=== PATIENT | female | born 1995 | race Two or more races ===

== ENCOUNTER 2023-12-01 07:05 | Emergency (ER) | payer SELFPAY ==
[2023-12-01 07:10] VITALS: BP 117/69; PULSE 82; RESP 16; TEMP 36.2; O2SAT 98; BMI 25.8
[2023-12-01 08:37] VITALS: BP 114/72; PULSE 87; RESP 16; TEMP 37.1; O2SAT 99
[2023-12-01 08:45] LABS: Influenza A PCR NEGATIVE (Negative); Influenza B PCR NEGATIVE (Negative); Resp Syncy Virus RNA Qual PCR NEGATIVE (Negative); SARS COV2 PCR INHOUSE NEGATIVE (Negative)
--- NOTE | 2023-12-01 09:28 | ED.GENADULT ---
HPI - General Adult General Chief complaint: Upper Respiratory Symptoms Stated complaint: itchy throat cough Time Seen by Provider: 12/01/23 09:02 Source: patient Mode of arrival: ambulatory Limitations: no limitations History of Present Illness HPI narrative: 28 year old with no significant past medical history presents to the ED today for evaluation of itchy throat, dry cough and congestion that began 2 days ago. She states that she was sick with similar symptoms approximately 1 week ago however they resolved until starting up again 2 days ago. Her boyfriend is ill at home with similar symptoms. She has not been taking any [id number] medications at home for symptoms. Denies fever, chills, dysphagia, odynophagia, sputum production, chest pain, shortness of breath, wheezing, dyspnea, hemoptysis, lower extremity pain/swelling, nausea or vomiting, abdominal pain. Denies recent travel or long car rides. Related Data Previous Rx's Medication Instructions Recorded benzonatate 100 mg capsule 100 mg PO BID PRN cough #20 caps 12/01/23 phenol 1.5 %-glycerin 33 % mucosal 1 spray mucous membrane Q4-6H PRN 12/01/23 spray (Chloraseptic Max Sore sore throat #118 mL Throat) prednisone 20 mg tablet 40 mg (2 x 20 mg) PO DAILY 5 days 12/01/23 #10 tabs Allergies Allergy/AdvReac Type Severity Reaction Status Date / Time No Known Allergies Allergy Verified 12/01/23 07:10 Review of Systems Review of Systems: Constitutional: No fever, chills, fatigue, night sweats, weight changes ENT/Mouth: No ear pain, hearing loss, sinus pain, rhinorrhea, +sore throat, +nasal congestion Eyes: No eye pain, swelling, redness, vision changes, discharge Cardio: No chest pain, palpitations, PAUL, orthopnea, peripheral edema Pulm: No SOB, cough, sputum, wheezing, dyspnea, hemoptysis GI: No nausea, vomiting, hematemesis, abdominal pain, diarrhea, constipation, hematochezia, melena : No irregular bleeding, dysuria, frequency, urgency, hesitancy, hematuria, flank pain, urinary flow changes, urinary incontinence or retention MSK: No back pain, neck pain, joint pain, myalgias Skin: No lesions, rashes Neuro: No weakness, numbness, paresthesias, LOC, dizziness, headache Psych: No anxiety/panic, depression, SI/HI, AH/VH All other systems reviewed and are negative. [facility] Past Medical History Attestation statement: The following information was validated with the patient. Source: old records reviewed and nursing notes reviewed Social History Social History Advance Directives: No Advance Directives Information Provided: Yes Advance Directives on File: No Physical Exam ED Vital Signs: Vital Signs - 24 hr 12/01/23 07:10 12/01/23 08:37 Temperature 97.1 F 98.8 F Pulse Rate 82 87 Respiratory Rate 16 16 Blood Pressure 117/69 114/72 Pulse Oximetry 98 99 Oxygen Delivery Method Room Air Room Air BMI result Body Mass Index 25.8 Vital signs stable, afebrile. Const General: cooperative, healthy appearing, comfortable, no acute distress, alert and awake Orientation/consciousness: patient oriented x3 Limitations: no limitations HENMT Other: + posterior oropharynx erythematous, no edema, uvula is midline, no tonsilar exudates or peritonsillar masses, controlling secretions and speaking in complete sentences. Head: Yes normal to inspection, Yes normocephalic and Yes atraumatic Ears: hearing grossly normal bilaterally, external ears normal, TM's normal bilaterally, EAC's normal, mastoids normal and no periauricular adenopathy General nose exam: Normal external nose present and No nasal discharge present Face and sinus: Yes normal facial exam and Yes sinuses nontender Eyes General: appearance normal, both eyes and all related structures Conjunctivae: conjunctivae normal Sclerae: sclerae normal Pupils: Equal, round and reactive pupils present Neck Other: + no cervical, submandibular or submental LAD. Neck: Yes normal visual inspection and Yes full ROM Resp Effort & Inspection: normal respiratory effort and able to speak in complete sentences Auscultation: clear to auscultation bilaterally, no crackles, no rhonchi and no wheezes Cardio Rate: regular rate Rhythm: regular rhythm GI Inspection: Yes normal to inspection Palpation (GI): Soft to palpation and nontender Skin General skin exam: no rashes or lesions noted Neuro General: patient oriented x3, gait normal and moves all extremities Cranial nerves: Yes Equal, round and reactive pupils present Extrem General: Yes normal to inspection Course Course Course Narrative: 0939-- Patient has tested negative for COVID, flu, RSV, strep pharyngitis. Likely has viral upper respiratory infection. Discussed all results with patient. Will send Tessalon Perles, prednisone and Chloraseptic throat spray to pharmacy. Patient has remained stable throughout ED visit today. Discussed worrisome signs and symptoms and when to return to the ED. All questions answered at this time. Patient is agreeable with disposition and stable for discharge. Medical Decision Making Medical Decision Making [facility] Narrative: 28 year old with no significant past medical history presents to the ED today for evaluation of itchy throat, dry cough and congestion that began 2 days ago. Vital signs stable, afebrile. She is nontoxic-appearing and in no acute distress. Actively coughing on exam. Lungs are clear to auscultation bilaterally. No wheezes crackles or rhonchi. Posterior oropharynx is erythematous. No edema. No peritonsillar edema or masses. No tonsillar exudates. Uvula midline. Controlling secretions and speaking in complete sentences. Airway patent. Bilateral EACs and TMs WNL. No tenderness over maxillary or frontal sinuses. Differential diagnosis includes viral syndrome, strep throat. 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 Plan for viral serology and strep swabs. Differential Diagnosis Differential Diagnoses: The differential diagnosis associated with the presentation includes as above. Admission/Observation Not indicated Lab Data [facility] Lab Attestation statement: I reviewed the patient's lab results. as above Labs: Lab Results 12/01/23 12/01/23 Range/Units 07:44 09:21 Influenza Type A (PCR) NEGATIVE (Negative) Influenza Type B (PCR) NEGATIVE (Negative) RSV RNA Qual (PCR) NEGATIVE (Negative) SARS-CoV-2 RNA (RT-PCR) NEGATIVE (Negative) S. pyogenes GrpA JASMEET Negative (Negative) External Record Review External record reviewed: Inpatient record Prescription Management I considered prescription management with: Other (Tessalon Perles, prednisone, Chloraseptic spray) Social Determinants Patient?s care significantly limited by Social Determinants of Health including: Other Social Determinant of Health Critical Care Time Critical Care Time Critical Care Time: No Discharge Plan Discharge Clinical Impression: Viral upper respiratory infection Patient Disposition: Home, Self-Care Instructions: Upper Respiratory Infection (ED), Viral Syndrome (ED) Additional Instructions: You were seen in the ED today for evaluation of upper respiratory symptoms. You tested negative for COVID, flu, RSV, strep throat. You likely have a viral upper respiratory infection that does not require antibiotics. Prednisone as a steroid that has been sent to your pharmacy. Take this over the next 5 days. Tessalon Perles have been sent to your pharmacy. Take these as needed for cough. Chloraseptic spray has been sent to your pharmacy. Use this as needed for sore throat. Take Tylenol and ibuprofen as needed for body aches or fevers. Follow up with your primary care provider as needed. Return to the emergency department if your symptoms persist or worsen despite treatment or if you have difficulty swallowing, opening your mouth, or develop a rash. In the case of emergency, call 911.? Prescriptions: New benzonatate 100 mg capsule 100 mg PO BID PRN (Reason: cough) Qty: 20 0RF prednisone 20 mg tablet 40 mg PO DAILY 5 Days Qty: 10 0RF Chloraseptic Max Sore Throat 1.5-33 % spray,non-aerosol 1 spray mucous membrane Q4-6H PRN (Reason: sore throat) Qty: 118 0RF Rx Instructions: leave on area for 15 seconds then spit out Referrals: Physician,None [Primary Care Provider] - Stand Alone Forms: Work/School Release
[2023-12-01 09:35] LABS: IDNOW Serial# 08D9AD1C; Strep A Nucleic Acid Negative (Negative)
[2023-12-01 10:03] VITALS: BP 114/72; PULSE 87; RESP 16; TEMP 37.1; O2SAT 99
== END 2023-12-01 10:04 | disposition home or self-care (01) ==
PROVIDERS: Physician Assistant Medical; Emergency Provider Student in an Organized Health Care Education/Training Program
DX: J06.9 Acute upper respiratory infection, unspecified (principal); R05.9 Cough, unspecified; R09.81 Nasal congestion; J02.9 Acute pharyngitis, unspecified
CPT/HCPCS: 0241U; 87651; 99283

== ENCOUNTER 2024-05-17 17:58 | Emergency (ER) | payer OTHER, SELFPAY ==
--- NOTE | ~2024-05-17 | US_ITS ---
EXAMINATION: US OBSTETRICAL ULTRASOUND CLINICAL INFORMATION: 13 weeks . Abdominal cramping. COMPARISON: None available. LMP: 02/18/2024. Gestational age by maternal dates is 12 weeks, 5 days. Estimated date of delivery by maternal dates is 11/24/2024. TECHNIQUE: Transabdominal ultrasound was performed. FINDINGS: There is a single intrauterine gestational sac with visible yolk sac, embryo/fetus, and cardiac activity. There is no significant subchorionic hemorrhage or hematoma. HR: 149 beats per minute. CRL (crown rump length): 6.87 cm (13 weeks 1 day +/- 4 days). JOSE (estimated date of delivery): 11/21/2024 +/- 4 days. MATERNAL ADNEXA: The right maternal ovary measures 3.3 x 1.6 x 1.2 cm. The left maternal ovary measures 3.0 x 1.8 x 1.6 cm. There is no significant maternal adnexal mass. No maternal pelvic ascites. US/US OB <= 14 weeks fetus IMPRESSION: 1. Single intrauterine gestation with ultrasound gestational age of 13 weeks 1 day +/- 4 days. 2. Estimated date of delivery is 11/21/2024 +/- 4 days. 3. No maternal adnexal mass or pelvic ascites. Electronically signed by: Buzz Huang DO 05/17/2024 08:37 PM EDT
[2024-05-17 18:05] VITALS: BP 119/72; PULSE 77; RESP 20; TEMP 36.1; O2SAT 100; BMI 25.3
--- NOTE | 2024-05-17 18:06 | ED.PREGNANCY ---
HPI - General Chief complaint: Dizziness Stated complaint: , cramping Time Seen by Provider: 05/17/24 20:06 Source: patient Mode of arrival: ambulatory Limitations: no limitations History of Present Illness HPI Narrative: Patient is a 28-year-old female approximately 12 weeks with last menstrual period 02/18/2024 an JOSE 11/25/2023 following with OB for Tiffani presenting for diffuse lower abdominal cramping without vaginal bleeding abnormal vaginal discharge, associated nausea and lightheadedness without syncope. She has been experiencing nausea throughout this 1st trimester of . She took Zofran 4 mg at approximately 13:00 with only some relief. While at work she began to feel lightheaded and unwell and decided to seek evaluation. She denies any known sick contacts. Denies associated urinary symptoms. Related Data Previous Rx's ?Medication ?Instructions ?Recorded benzonatate 100 mg capsule 100 mg PO BID PRN cough #20 caps 12/01/23 phenol 1.5 %-glycerin 33 % mucosal 1 spray mucous membrane Q4-6H PRN 12/01/23 spray (Chloraseptic Max Sore sore throat #118 mL Throat) prednisone 20 mg tablet 40 mg (2 x 20 mg) PO DAILY 5 days 12/01/23 #10 tabs Allergies Allergy/AdvReac Type Severity Reaction Status Date / Time No Known Allergies Allergy Verified 05/17/24 18:07 Review of Systems Review of Systems: Yes all other systems are reviewed and are negative [facility] Past Medical History Attestation statement: The following information was validated with the patient. Source: old records reviewed Social History Social History Advance Directives: No Advance Directives Information Provided: No Do you have a plan to hurt others: No Plan Physical Exam Vital Signs: Vital Signs: Last Vital Signs Temp 0 F L 05/17/24 21:09 Pulse 93 05/17/24 21:09 Resp 16 05/17/24 21:09 BP 120/78 05/17/24 21:09 Pulse Ox 100 05/17/24 18:05 O2 Del Method Room Air 05/17/24 18:05 BMI result Body Mass Index 25.3 Appearance: Alert.?Oriented to person, place and time. No acute distress.?Normal affect. Eyes: Pupils equal, round and reactive to light.? ENT: Pharynx normal.?? Neck: Normal inspection.? Neck supple.?? CVS: Heart sounds normal. Normal heart rate and rhythm.? Pulses normal.?? Respiratory: No respiratory distress.? Lung sounds clear to auscultation bilaterally?? Abdomen: Soft and non-tender. Normoactive bowel sounds. No pulsatile mass.??No CVAT Skin: Skin warm and dry.? Normal skin color.? Normal skin turgor.?? Extremities: No lower extremity edema.? No calf ttp? Neuro: Moves all extremities spontaneously. Sensation intact bilaterally. CN II-XII intact. No focal neuro deficits. Ambulates with normal steady gait. Course Course Course Narrative: This is a Rapid Medical Examination (RME) performed by Nereida Browning PA-C in triage. Full HPI, ROS, assessment and treatment plan per primary provider in the Main ED. 28 yo female A1 currently 13 wks here for eval of nausea, light headedness, and lower abdominal cramping x24 hours. denies vaginal bleeding. reports confirmed via blood work. has not yet had ultrasound confirmation by OB. + well appearing Plan: labs, UA, ultrasound Medications Administered Discontinued Medications Generic Name Dose Route Start Last Admin Trade Name Freq PRN Reason Stop Dose Admin Ondansetron HCl 4 mg 05/17/24 20:19 05/17/24 20:30 Ondansetron Odt 4 Mg Tab.Rapdis TRANSLINGU 05/17/24 20:20 4 mg ONCE ONE Administration Medical Decision Making Medical Decision Making MDM Narrative: Patient is a 28-year-old female approximately 12 weeks presenting for evaluation of diffuse lower abdominal cramping without any injury, abnormal vaginal discharge or bleeding. Denies symptoms. No associated gastrointestinal symptoms. Abdominal examination is benign, unlikely acute surgical abdomen. Urinalysis without evidence of infection or microscopic hematuria.. ultrasound reveals a single live IUP without acute abnormality. She was offered IV fluids and IV Zofran as she does admit that she has been unable to taken much fluids. 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 She states that she has a close follow-up with her OB, and she will return should her symptoms worsen. We discussed consuming small frequent amounts of liquids, she may also mixed this with an electrolyte drink half and half to help keep her hydrated. Small frequent meals were recommended. Differential Diagnosis Differential Diagnoses: The differential diagnosis associated with the presentation includes (Gastritis, viral syndrome, UTI, ectopic . Unlikely TOA/ovarian abscess denies concern for STI, no associated pelvic symptoms or vaginal discharge. No systemic toxicity.) Admission/Observation Consideration of admission/observation: Escalation of care including admission/observation considered (See narrative above) Lab Data MDM Lab Attestation statement: I reviewed the patient's lab results. CBC revealing a mild leukocytosis of 11.9 may be secondary to vomiting or viral illness, no anemia, no thrombocytopenia. No electrolyte derangement. No HODAN. LFTs within normal range. HCG detectable. Urinalysis without infection. 05/17/24 18:34 05/17/24 18:34 Labs: Lab Results 05/17/24 Range/Units 18:34 WBC 11.9 H (4.8-10.8) X10*3/uL RBC 4.19 L (4.20-5.50) X10*6/uL Hgb 13.0 (12.0-16.0) g/dl Hct 38.0 (37.0-47.0) % MCV 90.7 (80.0-98.0) fL MCH 31.0 (27.0-33.0) pg MCHC 34.2 (31.0-35.0) g/dl RDW 12.5 (11.0-16.0) % Plt Count 231 (160-400) X10*3/uL MPV 9.3 L (9.4-12.3) fL Immature Gran % (Auto) 1.2 H (0.0-0.4) % Neut % (Auto) 76.9 H (45-73) % Lymph % (Auto) 16.2 L (20-40) % Treasure % (Auto) 5.0 (2-11) % Eos % (Auto) 0.4 (0-4) % Baso % (Auto) 0.3 (0-2) % Lymph # (Auto) 1.9 (1.2-4.9) X10*3/uL [place] # (Auto) 0.6 (0.1-1.2) X10*3/uL Eos # (Auto) 0.1 (0.0-0.4) X10*3/uL Baso # (Auto) 0.0 (0.0-0.2) X10*3/uL Abs Immat Gran (auto) 0.14 H (0.00-0.03) X10*3/uL Absolute Neuts (auto) 9.2 H (2.0-8.3) x10*3/uL Absolute Nucleated RBC 0.000 (0.0-0.012) X10*3/uL Nucleated RBC % (auto) 0.0 (0.0-0.2) /100WBC Sodium 136 (135-145) mmol/L Potassium 3.7 (3.3-5.1) mmol/L Chloride 105 (96-108) mmol/L Carbon Dioxide 20 L (22-29) mmol/L Anion Gap 15 (12-20) BUN 11 (9-16) mg/dL Creatinine 0.61 (0.5-1.4) mg/dL Estim Creat Clear Calc 126.6 Estimated GFR > 60 Random Glucose 79 (60-115) mg/dL Calcium 9.4 (8.4-10.2) mg/dL Magnesium 1.8 (1.6-2.6) mg/dL Total Bilirubin 0.4 (0.0-1.0) mg/dL AST 22 (5-31) U/L ALT 25 (0-31) U/L Alkaline Phosphatase 56 (39-117) U/L Total Protein 7.4 (6.5-8.0) g/dL Albumin 3.9 (3.5-5.0) g/dL Beta HCG, Quant 24760 mIU/mL Urine Color Yellow Urine Appearance Clear Urine pH 5.5 (5.0-9.0) Ur Specific [place] 1.025 (1.005-1.025) Urine Protein Negative (Neg-Trace) mg/dL Urine Glucose (UA) Negative (Negative) mg/dL Urine Ketones 15 (Negative) mg/dL Urine Blood Negative (Negative) Urine Nitrite Negative (Negative) Ur Leukocyte Esterase Negative (Negative) Independent Interpretation I performed an independent interpretation of an: Ultrasound (Single IUP) Radiology Impression Discussion of test interpretation with radiology: I have reviewed the radiologist's reading. Radiologist Impression: US/US OB <= 14 weeks fetus IMPRESSION: 1. Single intrauterine gestation with ultrasound gestational age of 13 weeks 1 day +/- 4 days. 2. Estimated date of delivery is 11/21/2024 +/- 4 days. 3. No maternal adnexal mass or pelvic ascites. External Record Review External record reviewed: Outpatient record Prescription Management I considered prescription management with: Other (Antiemetic) Discharge Plan Discharge Clinical Impression: Nausea and vomiting in Patient Disposition: Home, Self-Care Instructions: Nausea and Vomiting in (ED) Additional Instructions: Be sure that you are staying well hydrated drinking plenty of fluids. Use the Zofran you have been prescribed previously for nausea and vomiting. Small frequent meals may be helpful as well. ultrasound today is reassuring no acute abnormality. Blood work is very reassuring. Urine is without evidence of infection. Follow-up closely with your OB. Return with any new or worsening symptoms or concerns Prescriptions: No Action benzonatate 100 mg capsule 100 mg PO BID PRN (Reason: cough) Qty: 20 0RF prednisone 20 mg tablet 40 mg PO DAILY 5 Days Qty: 10 0RF Chloraseptic Max Sore Throat 1.5-33 % spray,non-aerosol 1 spray mucous membrane Q4-6H PRN (Reason: sore throat) Qty: 118 0RF Rx Instructions: leave on area for 15 seconds then spit out Referrals: Physician,None [Primary Care Provider] - Interventions: ED Discharge Assessment Last Done: 05/17/24 21:09 Discharge Date/Time: 05/17/24 21:10 Print Language: Citizen Of [place]
[2024-05-17 18:43] LABS: MANUAL DIFF FLAG NO
[2024-05-17 18:46] LABS: Basophils Percent Auto 0.3 % (0-2); Eosinophils Absolute Auto 0.1 X10*3/uL (0.0-0.4); Eosinophils Percent Auto 0.4 % (0-4); Imm Gran Abs Auto 0.14 X10*3/uL (0.00-0.03); Imm Gran Pct Auto 1.2 % (0.0-0.4); Lymphocytes Absolute Auto 1.9 X10*3/uL (1.2-4.9); Lymphocytes Percent Auto 16.2 % (20-40); Mean Corpuscular HGB Conc 34.2 g/dl (31.0-35.0); Mean Corpuscular Volume 90.7 fL (80.0-98.0); Mean Platelet Volume 9.3 fL (9.4-12.3); Monocytes Absolute Auto 0.6 X10*3/uL (0.1-1.2); Neutrophils Absolute Auto 9.2 x10*3/uL (2.0-8.3); Neutrophils Percent Auto 76.9 % (45-73); Platelet Count 231 X10*3/uL (160-400); Red Blood Count 4.19 X10*6/uL (4.20-5.50); Red Cell Distribution Width 12.5 % (11.0-16.0); White Blood Count 11.9 X10*3/uL (4.8-10.8)
[2024-05-17 18:47] LABS: Appearance Urine Clear; Color Urine Yellow; Glucose Urine UA Negative (Negative); Leukocyte Esterase Urine Negative (Negative); Nitrite Urine Negative (Negative); PH 5.5 (5.0-9.0); Specific Gravity - Urine 1.025 (1.005-1.025); Urine Blood Negative (Negative); Urine Ketones 15 mg/dL (Negative); Urine Protein Negative (Neg-Trace)
[2024-05-17 19:07] LABS: Alanine Aminotransferase 25 U/L (0-31); Albumin Level 3.9 g/dL (3.5-5.0); Alkaline Phosphatase 56 U/L (39-117); Anion Gap 15 (12-20); Aspartate Amino Transferase 22 U/L (5-31); Bilirubin Total 0.4 mg/dL (0.0-1.0); Blood Urea Nitrogen 11 mg/dL (9-16); Calcium 9.4 mg/dL (8.4-10.2); Carbon Dioxide 20 mmol/L (22-29); Chloride 105 mmol/L (96-108); Creatinine Clr Calc Pharmacy 126.6; Estimated Glomerular Filt Rate > 60; Glucose Random 79 mg/dL (60-115); Magnesium 1.8 mg/dL (1.6-2.6); Potassium 3.7 mmol/L (3.3-5.1); Sodium 136 mmol/L (135-145); Total Protein 7.4 g/dL (6.5-8.0)
--- OUTSIDE RECORDS SUMMARY | 2024-05-17 19:28 | XMS_ITS | Continuity of Care Document ---
Author Organization [facility] ter Address [address] [place] [id number]- Care Team Providers Care Drum Printer Name Role Phone Not on Staff, PCP Primary Care Physician Unavail able [place] [facility] [place]): [place] - 05/07/[address] [id number]- Encounter Diagnosis Boxers fracture(Final) - 05/07/22 Hand abrasion(Final) - 05/07/22 Discharge Disposition: A-D/C Home Attending Physician: Akbar Trinidad MD Admitting Physician: Akbar Trinidad MD Referring Physician: Not on Staff, Referring MD Allergies, Adverse Reactions, Alerts No Known Allergies Problem List Condition Effective Dates Status Health Status Inform ant Normal (Confirmed) Active Results Radiology Reports * Exam Date Time Procedure Performing Provider Status 05/06/22 10:13 PM Hand Min 3 Views Right Huy Brown son; Auth (Verified) Notes: (Hand Min 3 Views Right) Reason For Exam: with Pain;Trauma RESULT: Hand Min 3 Views Right Hand Min 3 Views Right, 3 views INDICATION: R hand pain; Reason: Trauma; with Pain; Clinical Question(s): Fracture COMPARISON: None. FINDINGS: Slightly comminuted, mildly angulated, nondisplaced fracture of the right fifth distal metacarpal metaphysis. No arthritic changes. Tissue swelling along the ulnar aspect of the hand. IMPRESSION: Slightly comminuted, mildly angulated, nondisplaced fracture of the right fifth distal metacarpal metaphysis (boxer's fracture). A critical result message ([place]) has been communicated via the [facility] system on 05/06/2022 10:29 PM, Message ID [id number]. I have personally reviewed the images and I agree with this report. WSN: [id number] Ordering Physician: Marbella Hooks Dictated By: Yessenia Mckenzie DO Dictated Date/Time: 05/06/22 10:31 p Reviewed By: Asaf Pearson MD Signed By: Asaf Pearson MD Signed Date/Time: 05/06/22 10:36 pm Transcribed By: SHARAD Transcribed Date/Time: 05/06/22 10:29 pm Vital Signs Most recent to oldest [Reference Range]: 1 2 3 Height 160 cm (05/06/22 7:49 PM) 160 cm (05/06/22 7:41 PM) Weight 70 kg (05/06/22 7:49 PM) 70 kg (05/06/22 7:41 PM) Oxygen Saturation [94-100 %] 99 % (05/07/22 2:52 AM) 100 % (05/07/22 12:26 AM) 100 % (05/06/22 11:29 PM) Pulse Rate [55-90 bpm] 63 bpm (05/07/22 2:52 AM) 55 bpm (05/07/22 12:26 AM) 59 bpm (05/06/22 11:29 PM) Body Mass Index [18.5-24.99] 27.34 *H* (05/06/22 7:41 PM) Blood Pressure [90-138/55-84 mm Hg] 127/64mm Hg (05/07/22 2:52 AM) 113/77mm Hg (05/07/22 12:26 AM) 132/68mm Hg (05/06/22 11:29 PM) Respiratory Rate [16-30 br/min] 15 br/min *L* (05/07/22 2:52 AM) 16 br/min (05/06/22 11:29 PM) 16 br/min (05/06/22 7:41 PM) Temperature [96.8-100.4 DegF] 97.9 DegF (05/07/22 2:52 AM) 98.0 DegF (05/07/22 12:26 AM) 98.2 DegF (05/06/22 11:29 PM) Mode of Delivery (Oxygen) Room air (05/07/22 2:52 AM) Room air (05/06/22 11:29 PM) Room air (05/06/22 7:41 PM) Blood pressure sites Arm, left (05/07/22 2:52 AM) Arm, left (05/07/22 12:26 AM) Arm, right (05/06/22 11:29 PM) Temperature Route Oral (05/07/22 2:52 AM) Oral (05/07/22 12:26 AM) Oral (05/06/22 11:29 PM) Dry Weight 70 kg (05/06/22 7:49 PM) 70 kg (05/06/22 7:41 PM) Weight Obtained Via Standing scale (05/06/22 7:41 PM) Dry Weight Obtained Via Standing scale (05/06/22 7:41 PM) Note * [facility] , CIS S: TRANSCRIBE Asaf Pearson MD: VERIFY Yessenia Mckenzie DO P: SIGN Event Display: Result: Authored Date: Hand Min 3 Views Right, 3 views INDICATION: R hand pain; Reason: Trauma; with Pain; Clinical Question(s): Fracture COMPARISON: None. FINDINGS: Slightly comminuted, mildly angulated, nondisplaced fracture of the right fifth distal metacarpal metaphysis. No arthritic changes. Tissue swelling along the ulnar aspect of the hand. IMPRESSION: Slightly comminuted, mildly angulated, nondisplaced fracture of the right fifth distal metacarpal metaphysis (boxer's fracture). A critical result message ([place]) has been communicated via the [facility] system on 05/06/2022 10:29 PM, Message ID [id number]. I have personally reviewed the images and I agree with this report. WSN: [id number] Ordering Physician: Marbella Hooks Dictated By: Yessenia Mckenzie DO Dictated Date/Time: 05/06/22 10:31 p Reviewed By: Asaf Pearson MD Signed By: Asaf Pearson MD Signed Date/Time: 05/06/22 10:36 pm Transcribed By: SHARAD Transcribed Date/Time: 05/06/22 10:29 pm Care Team Personnel Name: Not on Staff, PCP
--- OUTSIDE RECORDS SUMMARY | 2024-05-17 19:28 | XMS_ITS | Continuity of Care Document ---
Author Organization [facility] ter Address [address] [place] [id number]- Care Team Providers Care Heading And Priming Operator Name Role Phone Yokasta GERMAN, Bindu Segura Primary Care Ph ysician [place] [facility] [place] - 04/15/[address] [address]- Discharge Disposition: A-D/C Walkout Attending Physician: Not on Staff, Attending MD Admitting Physician: Not on Staff, Admitting MD Referring Physician: Not on Staff, Referring MD Allergies, Adverse Reactions, Alerts No Known Allergies Medications ondansetron 4 mg oral tablet See Instructions, TAKE 1 TABLET BY MOUTH EVERY 8 HOURS NEEDED FOR NAUSEA AND VOMITING, # 10 tablet, 1 Refills, Maintenance, 05/15/23 13:34:00 EDT, [id number], 160, cm, 04/29/23 14:26:00 EDT, Height, 73.9, kg, 04/29/23 14:26:00 EDT, Dry Weight Start Date: 05/15/23 Status: Ordered pyridoxine 25 mg oral tablet 1 tablet = 25 mg, By Mouth, 3 times a day, PRN Nausea & Vomiting, # 100 tablet, 1 Refills, Maintenance, 04/29/23 18:22:00 EDT, Tablet, [id number], Partial fill upon patient request if theprescription is for a schedule II opioid drug., 160, cm... Start Date: 04/29/23 Status: Ordered Unisom 25 mg oral tablet 1 tablet = 25 mg, By Mouth, Daily at bedtime, PRN for sleep, # 30 tablet, 1 Refills, Maintenance, 04/29/23 18:22:00 EDT, Tablet, [id number], Partial fill upon patient request if the prescription is for a schedule II opioid drug., 160, cm, 2... Start Date: 04/29/23 Status: Ordered Problem List Condition Confirmation Course Effective Dates Status Health St atus Informant Normal Confirmed Active Vital Signs Most recent to oldest [Reference Range]: 1 2 Height 160 cm (04/15/24 6:11 PM) Weight 63.6 kg (04/15/24 6:11 PM) Oxygen Saturation [94-100 %] 100 % (04/15/24 6:11 PM) 97 % (04/15/24 6:05 PM) Pulse Rate [55-90 bpm] 67 bpm (04/15/24 6:11 PM) 97 bpm *H* (04/15/24 6:05 PM) Body Mass Index [18.5-24.99 kg/m2] 24.84 kg/m2 (04/15/24 6:11 PM) Blood Pressure [90-138/55-84 mm Hg] 109/ 62mm Hg (04/15/24 6:11 PM) Respiratory Rate [16-30 br/min] 18 br/mi n (04/15/24 6:11 PM) 18 br/min (04/15/24 6:05 PM) Temperature [96.8-100.4 DegF] 98.5 DegF (04/15/24 6:11 PM) Mode of Delivery (Oxygen) Room air (04/15/24 6:11 PM) Room air (04/15/24 6:05 PM) Blood pressure sites Arm, left (04/15/24 6:11 PM) Temperature Route Oral (04/15/24 6:11 PM) Dry Weight 63.6 kg (04/15/24 6:11 PM) Weight Obtained Via Patient/family state d (04/15/24 6:11 PM) Dry Weight Obtained Via Patient/family s tated (04/15/24 6:11 PM) Patient Care team information Care Team Personnel Name: Bindu Templeton MD Position: S Physician - Pediatrics Member Role: PCP Address: Address: [address] [place] [address], [address] [facility] [place] [address]- Care Team Related Persons Name: JAKY ESCALANTE Name: SRIRAM ESCALANTE Address: home [address] [place] [id number]
--- OUTSIDE RECORDS SUMMARY | 2024-05-17 19:28 | XMS_ITS | Continuity of Care Document ---
Author Organization [facility] ter Address [address] [place] [id number]- Care Team Providers Care Buildings And Grounds Superintendent Name Role Phone Not on Staff, PCP Primary Care Physician Unavail able Encounter [facility] [place] Date(s): 04/29/23 - 04/29/[address] [address]- Discharge Disposition: Transferred to an intermediate care faci Attending Physician: Elvis Healy MD Admitting Physician: Elvis Healy MD Referring Physician: Not on Staff, Referring MD Allergies, Adverse Reactions, Alerts No Known Allergies Medications ondansetron 4 mg oral tablet 1 tablet = 4 mg, By Mouth, Every 8 hours, PRN Nausea & Vomiting, # 10 tablet, 0 Refills, Maintenance, 04/29/23 18:22:00 EDT, Tablet, [id number], Partial fill upon patient request if the prescription is for a schedule II opioid drug., 160, cm,... Start Date: 04/29/23 Status: Ordered pyridoxine 25 mg oral tablet [...] opioid drug., 160, cm, 2... Start Date: 8/26/23 Status: Ordered Problem List Condition Confirmation Course Effective Dates Status Health St atus Informant Normal Confirmed Active Vital Signs Most recent to oldest [Reference Range]: 1 Height 160 cm (04/29/23 1:57 PM) Oxygen Saturation [94-100 %] 100 % (04/29/23 1:57 PM) Pulse Rate [55-90 bpm] 86 bpm (04/29/23 1:57 PM) Blood Pressure [90-138/55-84 mm Hg] 125/ 82mm Hg (04/29/23 1:57 PM) Respiratory Rate [16-30 br/min] 18 br/mi n (04/29/23 1:57 PM) Temperature [96.8-100.4 DegF] 98.8 DegF (04/29/23 1:57 PM) Mode of Delivery (Oxygen) Room air (04/29/23 1:57 PM) Blood pressure sites Arm, left (04/29/23 1:57 PM) Temperature Route Oral (04/29/23 1:57 PM) Dry Weight 75 kg (04/29/23 1:57 PM) Dry Weight Obtained Via Patient/family s tated (04/29/23 1:57 PM) Patient Care team information Care Team Personnel Name: Not on Staff, PCP Position: S Physician (General Medicine) Member Role: PCP Care Team Related Persons Name: JAKY ESCALANTE Name: SRIRAM ESCALANTE Address: home [address] [place] [id number]
[2024-05-17 19:33] LABS: HCG Quantitative 69358 mIU/mL
[2024-05-17 20:13] VITALS: BP 105/75; PULSE 100
[2024-05-17 20:16] VITALS: BP 120/78; PULSE 93
[2024-05-17] MEDS: Ondansetron ODT 4 MG TAB.RAPDIS TRANSLINGU (20:30)
[2024-05-17 21:09] VITALS: BP 120/78; PULSE 93; RESP 16; TEMP -17.7; TEMP 0
[2024-05-18 13:17] LABS: CT PCR NOT DETECTED (Not Detect.); NG PCR NOT DETECTED (Not Detect.)
== END 2024-05-17 21:10 | disposition home or self-care (01) ==
PROVIDERS: Physician Assistant Medical; Emergency Provider Emergency Medicine
DX: O21.9 Vomiting of pregnancy, unspecified (principal); Z3A.12 12 weeks gestation of pregnancy
CPT/HCPCS: 36415; 76801; 80053; 81003; 83735; 84702; 85025; 87491; 87591; 99283; 99284